=== PATIENT | female | born 1990 | race Caucasian/White ===

== ENCOUNTER → 2016-05-07 | Outpatient (CLI) | payer OTHER ==
--- NOTE | 2016-05-07 15:22 | US ---
Ultrasound Pelvis Complete (Transabdominal and Endovaginal) Including Duplex/Doppler Imaging History: [place] IUD, unable to visualize strings. Technique: Transabdominal and endovaginal ultrasound images were obtained. Endovaginal images obtain ed for better evaluation of the uterine myometrium and adnexa. Duplex/Doppler imaging of adnexa. Findings: Uterus measures 10 x 4 x 4 cm. IUD appears in good position centrally within the endometri al canal near the fundus region. Endometrial thickness is 2 mm. No definite uterine leiomyomata. Right ovary measures 3.3 x 3.7 x 1.8 cm. Left ovary measures 2.8 x 2.5 x 1.5 cm. No adnexal masses. M inimal probably physiologic free fluid in the pelvis. Color Doppler flow to both ovaries without tors ion. Impression: 1. IUD appears in good position. 2. No adnexal masses or ovarian torsion.
== END ==
LOC: FIMAGING 14:08
PROVIDERS: ATTEND Advanced Practice Midwife
DX: Z30.431 Encounter for routine checking of intrauterine contraceptive device (principal)